=== PATIENT | female | born 1980 | race Caucasian/White ===

== ENCOUNTER 2023-06-14 12:05 | Emergency (ER) | payer SELFPAY ==
[2023-06-14 12:10] VITALS: BP 129/92; PULSE 117; RESP 20; TEMP 37.4; O2SAT 99; BMI 24.4
--- NOTE | 2023-06-14 12:19 | ED_ITS ---
HPI - Female Genitourinary General Chief complaint: Urogenital-Female Stated complaint: BLOOD IN URINE/ UTI COMPLAINTS Time Seen by Provider: 06/14/23 12:17 Source: patient Mode of arrival: walk-in Limitations: no limitations History of Present Illness HPI Narrative: 43-year-old female presents for blood in her urine and some lower back pain and lower abdominal pain. It started yesterday. No trauma or fever. LMP May 31. She does not have dysuria or hematuria and the pain is mild to moderate. Related Data Previous Rx's Medication Instructions Recorded cephalexin 500 mg capsule 500 mg PO TID 7 days #21 caps 06/14/23 Allergies Allergy/AdvReac Type Severity Reaction Status Date / Time No Known Drug Allergies Allergy Verified 06/14/23 12:09 Review of Systems ROS Narrative A ten point review of systems is negative except as noted above. PFSH PFSH Social History Smoking status: Former smoker Exam Narrative Exam Narrative: Nurses note and vital signs reviewed and patient is not hypoxic. General: The patient appears well and in no apparent distress. Patient is resting comfortably on cart. Skin: Warm, dry, no pallor noted. There is no rash noted. Head: Normocephalic, atraumatic Eye: Normal conjunctiva, no drainage Ears, Nose, Mouth, and Throat: oral mucosa is moist. Nares patent. Cardiovascular: Regular Rate and Rhythm Respiratory: Patient is in no distress, no accessory muscle use, lungs are clear to auscultation, no wheezing, rales or rhonchi Back: non-tender, no bruise or rash, no CVA tenderness GI: soft and nontender Musculoskeletal: The patient has no evidence of calf tenderness, no pitting edema, symmetrical pulses noted bilaterally Neurological: A&O, normal speech Psychiatric: Cooperative Constitutional Vital Signs, click to edit/add: Last Vital Signs Temp 99.3 F 06/14/23 12:10 Pulse 117 H 06/14/23 12:10 Resp 20 06/14/23 12:10 BP 129/92 H 06/14/23 12:10 Pulse Ox 99 06/14/23 12:10 O2 Del Method Room Air 06/14/23 12:10 Course Vital Signs Vital signs: Vital Signs Temperature 99.3 F 06/14/23 12:10 Pulse Rate 117 H 06/14/23 12:10 Respiratory Rate 20 06/14/23 12:10 Blood Pressure 129/92 H 06/14/23 12:10 Pulse Oximetry 99 06/14/23 12:10 Oxygen Delivery Method Room Air 06/14/23 12:10 Temperature 99.3 F 06/14/23 12:10 Pulse Rate 117 H 06/14/23 12:10 Respiratory Rate 20 06/14/23 12:10 Blood Pressure 129/92 H 06/14/23 12:10 Pulse Oximetry 99 06/14/23 12:10 Oxygen Delivery Method Room Air 06/14/23 12:10 MDM - Female Genitourinary MDM Narrative Medical decision making narrative: urinalysis shows presence of urinary tract infection. test is negative. She is being prescribed Keflex. Treatment diagnosis and follow-up were discussed with the patient. Differential Diagnosis Differential diagnosis: Likely urinary tract infection, cystitis and other (hematuria, kidney stone) Lab Data Attestation: I reviewed the patient's lab results. Labs: Lab Results 06/14/23 Range/Units 12:50 Urine Color Lt. yellow (YELLOW) Urine Clarity Clear (CLEAR) Urine pH 8.0 (5.0-9.0) Ur Specific Vivian 1.010 (1.005-1.025) Urine Protein Negative (NEG/TRACE) mg/dL Urine Glucose (UA) Negative (NEGATIVE) mg/dL Urine Ketones Negative (NEGATIVE) mg/dL Urine Occult Blood Small A (NEGATIVE) Urine Nitrite Negative (NEGATIVE) Urine Bilirubin Negative (NEGATIVE) Urine Urobilinogen 0.2 (0.2-1.0) EU/dL Ur Leukocyte Esterase Small A (NEGATIVE) Urine RBC 2-5 A (0-2) #/HPF Urine WBC 10-20 A (NONE SEEN) #/HPF Ur Squamous Epith Cells Rare (NONE/RARE) #/LPF Urine Crystals None seen (None Seen) #/HPF Urine Bacteria Trace A (NONE SEEN) #/HPF Urine Casts None seen (NONE SEEN) #/LPF Urine Mucus None seen (NONE SEEN) Urine HCG, Qual Negative (NEGATIVE) Discharge Plan Discharge Chief Complaint: Urogenital-Female Clinical Impression: Urinary tract infection Patient Disposition: Home, Self-Care Time of Disposition Decision: 13:18 Condition: Good Mode of Transportation: Private Vehicle Prescriptions / Home Meds: New cephalexin 500 mg capsule 500 mg PO TID 7 Days Qty: 21 0RF Instructions: Urinary Tract Infection in Women (DC) Stand Alone Forms: Portal Instructions Referrals: Physician,Non-Staff, MD [Primary Care Provider] - 1 week
[2023-06-14 13:04] LABS: Bilirubin Urine NEGATIVE (NEGATIVE); Blood Urine SMALL (NEGATIVE); Clarity Urine CLEAR (CLEAR); Color Urine LT. YELLOW (YELLOW); Glucose Urine UA NEGATIVE (NEGATIVE); Ketones Urine NEGATIVE (NEGATIVE); Leukocyte Esterase Urine SMALL (NEGATIVE); Nitrite Urine NEGATIVE (NEGATIVE); Protein Urine NEGATIVE (NEG/TRACE); Urobilinogen Urine 0.2 EU/dL (0.2-1.0)
[2023-06-14 13:06] LABS: HCG Qualitative Urine* NEGATIVE (NEGATIVE)
[2023-06-14 13:11] LABS: Bacteria Urine TRACE #/HPF (NONE SEEN); Mucus Urine NONE SEEN (NONE SEEN)
[2023-06-14 13:12] LABS: Cast Seen? NONE SEEN #/LPF (NONE SEEN); Crystals Seen? None Seen #/HPF (None Seen); Squamous Epithelial Cell Urine RARE #/LPF (NONE/RARE)
== END 2023-06-14 13:30 | disposition home or self-care (01) ==
PROVIDERS: Emergency Provider Emergency Medicine
DX: N39.0 Urinary tract infection, site not specified (principal); Z87.891 Personal history of nicotine dependence; R50.9 Fever, unspecified
CPT/HCPCS: 81001; 84703; 99283